=== PATIENT | male | born 1945 | race Caucasian/White ===

== ENCOUNTER 2023-07-27 10:05 | Outpatient (CLI) | payer MEDICARE, BC | END 2023-07-27 10:06 | disposition home or self-care (01) | LOC: CSHWCC 10:05 | PROVIDERS: ATTEND Nurse Practitioner Family | DX: N30.41 Irradiation cystitis with hematuria (principal) | CPT/HCPCS: 99213; G0463 ==

== ENCOUNTER 2023-08-18 08:19 | Outpatient (CLI) | payer MEDICARE, BC | END 2023-08-18 08:20 | disposition home or self-care (01) | LOC: CSHWCC 08:19 | PROVIDERS: ATTEND Preventive Medicine Undersea and Hyperbaric Medicine | DX: N30.41 Irradiation cystitis with hematuria (principal) | CPT/HCPCS: G0277 ==

== ENCOUNTER 2023-08-19 08:57 | Outpatient (CLI) | payer MEDICARE, BC | END 2023-08-19 08:58 | disposition home or self-care (01) | LOC: CSHWCC 08:57 | PROVIDERS: ATTEND Nurse Practitioner Family | DX: N30.41 Irradiation cystitis with hematuria (principal) | CPT/HCPCS: G0277 ==

== ENCOUNTER 2023-08-20 08:24 | Outpatient (CLI) | payer MEDICARE, BC | END 2023-08-20 08:25 | disposition home or self-care (01) | LOC: CSHWCC 08:24 | PROVIDERS: ATTEND Nurse Practitioner Family | DX: N30.41 Irradiation cystitis with hematuria (principal) | CPT/HCPCS: G0277 ==

== ENCOUNTER 2023-08-21 14:26 | Outpatient (CLI) | payer MEDICARE, BC | END 2023-08-21 14:27 | disposition home or self-care (01) | LOC: CSHWCC 14:26 | PROVIDERS: ATTEND Nurse Practitioner Family | DX: N30.41 Irradiation cystitis with hematuria (principal) | CPT/HCPCS: G0277 ==

== ENCOUNTER 2023-08-24 10:11 | Outpatient (CLI) | payer MEDICARE, BC | END 2023-08-24 10:12 | disposition home or self-care (01) | LOC: CSHWCC 10:11 | PROVIDERS: ATTEND Nurse Practitioner Family | DX: N30.41 Irradiation cystitis with hematuria (principal) ==

== ENCOUNTER 2023-08-25 08:36 | Outpatient (CLI) | payer MEDICARE, BC | END 2023-08-25 08:37 | disposition home or self-care (01) | LOC: CSHWCC 08:36 | PROVIDERS: ATTEND Nurse Practitioner Family | DX: N30.41 Irradiation cystitis with hematuria (principal) | CPT/HCPCS: G0277 ==

== ENCOUNTER 2023-08-26 08:10 | Outpatient (CLI) | payer MEDICARE, BC | END 2023-08-26 08:11 | disposition home or self-care (01) | LOC: CSHWCC 08:10 | PROVIDERS: ATTEND Nurse Practitioner Family | DX: N30.41 Irradiation cystitis with hematuria (principal) | CPT/HCPCS: G0277 ==

== ENCOUNTER 2023-08-27 08:56 | Outpatient (CLI) | payer MEDICARE, BC | END 2023-08-27 08:57 | disposition home or self-care (01) | LOC: CSHWCC 08:56 | PROVIDERS: ATTEND Nurse Practitioner Family | DX: N30.41 Irradiation cystitis with hematuria (principal) | CPT/HCPCS: G0277 ==

== ENCOUNTER 2023-08-28 08:31 | Outpatient (CLI) | payer MEDICARE, BC | END 2023-08-28 08:32 | disposition home or self-care (01) | LOC: CSHWCC 08:31 | PROVIDERS: ATTEND Nurse Practitioner Family | DX: N30.41 Irradiation cystitis with hematuria (principal) | CPT/HCPCS: G0277 ==

== ENCOUNTER 2023-08-31 09:50 | Outpatient (CLI) | payer MEDICARE, BC | END 2023-08-31 09:51 | disposition home or self-care (01) | LOC: CSHWCC 09:50 | PROVIDERS: ATTEND Nurse Practitioner Family | DX: N30.41 Irradiation cystitis with hematuria (principal) | CPT/HCPCS: 82962; G0277; 36416 ==

== ENCOUNTER 2023-09-01 08:49 | Outpatient (CLI) | payer MEDICARE, BC | END 2023-09-01 08:50 | disposition home or self-care (01) | LOC: CSHWCC 08:49 | PROVIDERS: ATTEND Nurse Practitioner Family | DX: N30.41 Irradiation cystitis with hematuria (principal) | CPT/HCPCS: G0277 ==

== ENCOUNTER 2023-09-02 08:26 | Outpatient (CLI) | payer MEDICARE, BC | END 2023-09-02 08:27 | disposition home or self-care (01) | LOC: CSHWCC 08:26 | PROVIDERS: ATTEND Nurse Practitioner Family | DX: N30.41 Irradiation cystitis with hematuria (principal) | CPT/HCPCS: G0277 ==

== ENCOUNTER 2023-09-03 08:59 | Outpatient (CLI) | payer MEDICARE, BC | END 2023-09-03 09:00 | disposition home or self-care (01) | LOC: CSHWCC 08:59 | PROVIDERS: ATTEND Preventive Medicine Undersea and Hyperbaric Medicine | DX: N30.41 Irradiation cystitis with hematuria (principal) | CPT/HCPCS: G0277 ==

== ENCOUNTER 2023-09-04 08:50 | Outpatient (CLI) | payer MEDICARE, BC | END 2023-09-04 08:51 | disposition home or self-care (01) | LOC: CSHWCC 08:50 | PROVIDERS: ATTEND Preventive Medicine Undersea and Hyperbaric Medicine | DX: N30.41 Irradiation cystitis with hematuria (principal) | CPT/HCPCS: G0277 ==

== ENCOUNTER 2023-09-07 12:12 | Outpatient (CLI) | payer MEDICARE, BC | END 2023-09-07 12:13 | disposition home or self-care (01) | LOC: CSHWCC 12:12 | PROVIDERS: ATTEND Preventive Medicine Undersea and Hyperbaric Medicine | DX: N30.41 Irradiation cystitis with hematuria (principal) | CPT/HCPCS: G0277 ==

== ENCOUNTER 2023-09-08 09:23 | Outpatient (CLI) | payer MEDICARE, BC | END 2023-09-08 09:24 | disposition home or self-care (01) | LOC: CSHWCC 09:23 | PROVIDERS: ATTEND Preventive Medicine Undersea and Hyperbaric Medicine | DX: N30.41 Irradiation cystitis with hematuria (principal) | CPT/HCPCS: G0277 ==

== ENCOUNTER 2023-09-14 10:29 | Outpatient (CLI) | payer MEDICARE, BC | END 2023-09-14 10:30 | disposition home or self-care (01) | LOC: CSHWCC 10:29 | PROVIDERS: ATTEND Nurse Practitioner Family | DX: N30.41 Irradiation cystitis with hematuria (principal) ==

== ENCOUNTER 2023-09-15 12:03 | Outpatient (CLI) | payer MEDICARE, BC | END 2023-09-15 12:04 | disposition home or self-care (01) | LOC: CSHWCC 12:03 | PROVIDERS: ATTEND Nurse Practitioner Family | DX: N30.41 Irradiation cystitis with hematuria (principal) ==

== ENCOUNTER 2023-09-16 12:22 | Outpatient (CLI) | payer MEDICARE, BC | END 2023-09-16 12:23 | disposition home or self-care (01) | LOC: CSHWCC 12:22 | PROVIDERS: ATTEND Nurse Practitioner Family | DX: N30.41 Irradiation cystitis with hematuria (principal) | CPT/HCPCS: G0277 ==

== ENCOUNTER 2023-09-18 09:18 | Outpatient (CLI) | payer MEDICARE, BC | END 2023-09-18 09:19 | disposition home or self-care (01) | LOC: CSHWCC 09:18 | PROVIDERS: ATTEND Nurse Practitioner Family | DX: N30.41 Irradiation cystitis with hematuria (principal) | CPT/HCPCS: G0277 ==

== ENCOUNTER 2023-09-21 09:39 | Outpatient (CLI) | payer MEDICARE, BC | END 2023-09-21 09:40 | disposition home or self-care (01) | LOC: CSHWCC 09:39 | PROVIDERS: ATTEND Nurse Practitioner Family | DX: N30.41 Irradiation cystitis with hematuria (principal) ==

== ENCOUNTER 2023-09-23 14:10 | Outpatient (CLI) | payer MEDICARE, BC | END 2023-09-23 14:11 | disposition home or self-care (01) | LOC: CSHWCC 14:10 | PROVIDERS: ATTEND Nurse Practitioner Family | DX: N30.41 Irradiation cystitis with hematuria (principal) | CPT/HCPCS: G0277 ==

== ENCOUNTER 2023-09-24 08:18 | Outpatient (CLI) | payer MEDICARE, BC | END 2023-09-24 08:19 | disposition home or self-care (01) | LOC: CSHWCC 08:18 | PROVIDERS: ATTEND Nurse Practitioner Family | DX: N30.41 Irradiation cystitis with hematuria (principal) | CPT/HCPCS: G0277 ==

== ENCOUNTER 2023-09-29 12:59 | Outpatient (CLI) | payer MEDICARE, BC | END 2023-09-29 13:00 | disposition home or self-care (01) | LOC: CSHWCC 12:59 | PROVIDERS: ATTEND Nurse Practitioner Family | DX: N30.41 Irradiation cystitis with hematuria (principal) | CPT/HCPCS: G0277 ==

== ENCOUNTER 2023-09-30 13:17 | Outpatient (CLI) | payer MEDICARE, BC | END 2023-09-30 13:18 | disposition home or self-care (01) | LOC: CSHWCC 13:17 | PROVIDERS: ATTEND Nurse Practitioner Family | DX: N30.41 Irradiation cystitis with hematuria (principal) | CPT/HCPCS: G0277 ==

== ENCOUNTER 2023-10-01 08:49 | Outpatient (CLI) | payer MEDICARE, BC | END 2023-10-01 08:50 | disposition home or self-care (01) | LOC: CSHWCC 08:49 | PROVIDERS: ATTEND Nurse Practitioner Family | DX: N30.41 Irradiation cystitis with hematuria (principal) | CPT/HCPCS: G0277 ==

== ENCOUNTER 2023-10-02 08:38 | Outpatient (CLI) | payer MEDICARE, BC | END 2023-10-02 08:39 | disposition home or self-care (01) | LOC: CSHWCC 08:38 | PROVIDERS: ATTEND Nurse Practitioner Family | DX: N30.41 Irradiation cystitis with hematuria (principal) | CPT/HCPCS: G0277 ==

== ENCOUNTER 2024-11-18 08:03 | Outpatient (CLI) | payer MEDICARE, BC | END 2024-11-18 08:04 | disposition home or self-care (01) | LOC: CSHWCC 08:03 | PROVIDERS: ATTEND Nurse Practitioner Family | DX: N30.41 Irradiation cystitis with hematuria (principal); L59.8 Other specified disorders of the skin and subcutaneous tissue related to radiation | CPT/HCPCS: 99212; G0463 ==

== ENCOUNTER 2024-11-18 08:52 | Outpatient (CLI) | payer MEDICARE, BC | END 2024-11-18 08:53 | disposition home or self-care (01) | LOC: CSHRAD 08:52 | PROVIDERS: ATTEND Nurse Practitioner Family | DX: N30.41 Irradiation cystitis with hematuria (principal); L59.8 Other specified disorders of the skin and subcutaneous tissue related to radiation | CPT/HCPCS: 71046; 99212; G0463 ==

== ENCOUNTER 2024-11-22 08:40 | Outpatient (CLI) | payer MEDICARE, BC | END 2024-11-22 08:41 | disposition home or self-care (01) | LOC: CSHWCC 08:40 | PROVIDERS: ATTEND Nurse Practitioner Family | DX: N30.41 Irradiation cystitis with hematuria (principal); L59.8 Other specified disorders of the skin and subcutaneous tissue related to radiation | CPT/HCPCS: G0277 ==

== ENCOUNTER 2024-11-23 08:22 | Outpatient (CLI) | payer MEDICARE, BC | END 2024-11-23 08:23 | disposition home or self-care (01) | LOC: CSHWCC 08:22 | PROVIDERS: ATTEND Nurse Practitioner Family | DX: N30.41 Irradiation cystitis with hematuria (principal); L59.8 Other specified disorders of the skin and subcutaneous tissue related to radiation | CPT/HCPCS: G0277 ==

== ENCOUNTER 2024-11-24 08:32 | Outpatient (CLI) | payer MEDICARE, BC | END 2024-11-24 08:33 | disposition home or self-care (01) | LOC: CSHWCC 08:32 | PROVIDERS: ATTEND Nurse Practitioner Family | DX: N30.41 Irradiation cystitis with hematuria (principal); L59.8 Other specified disorders of the skin and subcutaneous tissue related to radiation | CPT/HCPCS: G0277 ==

== ENCOUNTER 2024-11-25 08:11 | Outpatient (CLI) | payer MEDICARE, BC | END 2024-11-25 08:12 | disposition home or self-care (01) | LOC: CSHWCC 08:11 | PROVIDERS: ATTEND Nurse Practitioner Family | DX: N30.41 Irradiation cystitis with hematuria (principal); L59.8 Other specified disorders of the skin and subcutaneous tissue related to radiation | CPT/HCPCS: G0277 ==

== ENCOUNTER 2024-11-28 08:10 | Outpatient (CLI) | payer MEDICARE, BC | END 2024-11-28 08:11 | disposition home or self-care (01) | LOC: CSHWCC 08:10 | PROVIDERS: ATTEND Nurse Practitioner Family | DX: N30.41 Irradiation cystitis with hematuria (principal); L59.8 Other specified disorders of the skin and subcutaneous tissue related to radiation | CPT/HCPCS: G0277 ==

== ENCOUNTER 2024-11-29 08:24 | Outpatient (CLI) | payer MEDICARE, BC | END 2024-11-29 08:25 | disposition home or self-care (01) | LOC: CSHWCC 08:24 | PROVIDERS: ATTEND Nurse Practitioner Family | DX: N30.41 Irradiation cystitis with hematuria (principal); L59.8 Other specified disorders of the skin and subcutaneous tissue related to radiation | CPT/HCPCS: G0277 ==

== ENCOUNTER 2024-11-30 08:32 | Outpatient (CLI) | payer MEDICARE, BC | END 2024-11-30 08:33 | disposition home or self-care (01) | LOC: CSHWCC 08:32 | PROVIDERS: ATTEND Nurse Practitioner Family | DX: N30.41 Irradiation cystitis with hematuria (principal); L59.8 Other specified disorders of the skin and subcutaneous tissue related to radiation | CPT/HCPCS: G0277 ==

== ENCOUNTER 2024-12-02 08:13 | Outpatient (CLI) | payer MEDICARE, BC | END 2024-12-02 08:14 | disposition home or self-care (01) | LOC: CSHWCC 08:13 | PROVIDERS: ATTEND Nurse Practitioner Family | DX: N30.41 Irradiation cystitis with hematuria (principal); L59.8 Other specified disorders of the skin and subcutaneous tissue related to radiation | CPT/HCPCS: G0277 ==

== ENCOUNTER 2024-12-05 08:24 | Outpatient (CLI) | payer MEDICARE, BC | END 2024-12-05 08:25 | disposition home or self-care (01) | LOC: CSHWCC 08:24 | PROVIDERS: ATTEND Nurse Practitioner Family | DX: N30.41 Irradiation cystitis with hematuria (principal); L59.8 Other specified disorders of the skin and subcutaneous tissue related to radiation | CPT/HCPCS: G0277 ==

== ENCOUNTER 2024-12-06 08:26 | Outpatient (CLI) | payer MEDICARE, BC | END 2024-12-06 08:27 | disposition home or self-care (01) | LOC: CSHWCC 08:26 | PROVIDERS: ATTEND Nurse Practitioner Family | DX: N30.41 Irradiation cystitis with hematuria (principal); L59.8 Other specified disorders of the skin and subcutaneous tissue related to radiation | CPT/HCPCS: G0277 ==

== ENCOUNTER 2024-12-07 08:12 | Outpatient (CLI) | payer MEDICARE, BC | END 2024-12-07 08:13 | disposition home or self-care (01) | LOC: CSHWCC 08:12 | PROVIDERS: ATTEND Nurse Practitioner Family | DX: N30.41 Irradiation cystitis with hematuria (principal); L59.8 Other specified disorders of the skin and subcutaneous tissue related to radiation | CPT/HCPCS: G0277 ==

== ENCOUNTER 2024-12-08 08:27 | Outpatient (CLI) | payer MEDICARE, BC | END 2024-12-08 08:28 | disposition home or self-care (01) | LOC: CSHWCC 08:27 | PROVIDERS: ATTEND Nurse Practitioner Family | DX: N30.41 Irradiation cystitis with hematuria (principal); L59.8 Other specified disorders of the skin and subcutaneous tissue related to radiation | CPT/HCPCS: G0277 ==

== ENCOUNTER 2024-12-09 08:30 | Outpatient (CLI) | payer MEDICARE, BC | END 2024-12-09 08:31 | disposition home or self-care (01) | LOC: CSHWCC 08:30 | PROVIDERS: ATTEND Nurse Practitioner Family | DX: N30.41 Irradiation cystitis with hematuria (principal); L59.8 Other specified disorders of the skin and subcutaneous tissue related to radiation | CPT/HCPCS: G0277 ==

== ENCOUNTER 2024-12-13 08:24 | Outpatient (CLI) | payer MEDICARE, BC | END 2024-12-13 08:25 | disposition home or self-care (01) | LOC: CSHWCC 08:24 | PROVIDERS: ATTEND Nurse Practitioner Family | DX: N30.41 Irradiation cystitis with hematuria (principal); L59.8 Other specified disorders of the skin and subcutaneous tissue related to radiation | CPT/HCPCS: G0277 ==

== ENCOUNTER 2024-12-14 08:05 | Outpatient (CLI) | payer MEDICARE, BC | END 2024-12-14 08:06 | disposition home or self-care (01) | LOC: CSHWCC 08:05 | PROVIDERS: ATTEND Nurse Practitioner Family | DX: N30.41 Irradiation cystitis with hematuria (principal); L59.8 Other specified disorders of the skin and subcutaneous tissue related to radiation | CPT/HCPCS: G0277 ==

== ENCOUNTER 2024-12-15 08:12 | Outpatient (CLI) | payer MEDICARE, BC | END 2024-12-15 08:13 | disposition home or self-care (01) | LOC: CSHWCC 08:12 | PROVIDERS: ATTEND Nurse Practitioner Family | DX: N30.41 Irradiation cystitis with hematuria (principal); L59.8 Other specified disorders of the skin and subcutaneous tissue related to radiation | CPT/HCPCS: G0277 ==

== ENCOUNTER 2024-12-16 08:00 | Outpatient (CLI) | payer MEDICARE, BC | END 2024-12-16 08:01 | disposition home or self-care (01) | LOC: CSHWCC 08:00 | PROVIDERS: ATTEND Nurse Practitioner Family | DX: N30.41 Irradiation cystitis with hematuria (principal); L59.8 Other specified disorders of the skin and subcutaneous tissue related to radiation | CPT/HCPCS: G0277 ==

== ENCOUNTER 2024-12-30 08:17 | Outpatient (CLI) | payer MEDICARE, BC | END 2024-12-30 08:18 | disposition home or self-care (01) | LOC: CSHWCC 08:17 | PROVIDERS: ATTEND Nurse Practitioner Family | DX: N30.41 Irradiation cystitis with hematuria (principal); L59.8 Other specified disorders of the skin and subcutaneous tissue related to radiation | CPT/HCPCS: G0277 ==

== ENCOUNTER 2025-01-02 09:03 | Outpatient (CLI) | payer MEDICARE, BC | END 2025-01-02 09:04 | disposition home or self-care (01) | LOC: CSHWCC 09:03 | PROVIDERS: ATTEND Nurse Practitioner Family | DX: N30.41 Irradiation cystitis with hematuria (principal); L59.8 Other specified disorders of the skin and subcutaneous tissue related to radiation | CPT/HCPCS: G0277 ==

== ENCOUNTER 2025-01-17 08:02 | Outpatient (CLI) | payer MEDICARE, BC | END 2025-01-17 08:03 | disposition home or self-care (01) | LOC: CSHWCC 08:02 | PROVIDERS: ATTEND Nurse Practitioner Family | DX: N30.41 Irradiation cystitis with hematuria (principal); L59.8 Other specified disorders of the skin and subcutaneous tissue related to radiation | CPT/HCPCS: G0277 ==

== ENCOUNTER 2025-01-24 08:09 | Outpatient (CLI) | payer MEDICARE, BC | END 2025-01-24 08:10 | disposition home or self-care (01) | LOC: CSHWCC 08:09 | PROVIDERS: ATTEND Nurse Practitioner Family | DX: N30.41 Irradiation cystitis with hematuria (principal); L59.8 Other specified disorders of the skin and subcutaneous tissue related to radiation | CPT/HCPCS: G0277 ==

== ENCOUNTER 2025-01-26 08:04 | Outpatient (CLI) | payer MEDICARE, BC | END 2025-01-26 08:05 | disposition home or self-care (01) | LOC: CSHWCC 08:04 | PROVIDERS: ATTEND Nurse Practitioner Family | DX: N30.41 Irradiation cystitis with hematuria (principal); L59.8 Other specified disorders of the skin and subcutaneous tissue related to radiation | CPT/HCPCS: G0277 ==

== ENCOUNTER 2025-01-27 08:07 | Outpatient (CLI) | payer MEDICARE, BC | END 2025-01-27 08:08 | disposition home or self-care (01) | LOC: CSHWCC 08:07 | PROVIDERS: ATTEND Nurse Practitioner Family | DX: N30.41 Irradiation cystitis with hematuria (principal); L59.8 Other specified disorders of the skin and subcutaneous tissue related to radiation | CPT/HCPCS: G0277 ==

== ENCOUNTER 2025-01-30 08:04 | Outpatient (CLI) | payer MEDICARE, BC | END 2025-01-30 08:05 | disposition home or self-care (01) | LOC: CSHWCC 08:04 | PROVIDERS: ATTEND Nurse Practitioner Family | DX: N30.41 Irradiation cystitis with hematuria (principal); L59.8 Other specified disorders of the skin and subcutaneous tissue related to radiation | CPT/HCPCS: G0277 ==

== ENCOUNTER 2025-01-31 08:30 | Outpatient (CLI) | payer MEDICARE, BC | END 2025-01-31 08:31 | disposition home or self-care (01) | LOC: CSHWCC 08:30 | PROVIDERS: ATTEND Nurse Practitioner Family | DX: N30.41 Irradiation cystitis with hematuria (principal); L59.8 Other specified disorders of the skin and subcutaneous tissue related to radiation | CPT/HCPCS: G0277 ==

== ENCOUNTER 2025-02-01 08:10 | Outpatient (CLI) | payer MEDICARE, BC | END 2025-02-01 08:11 | disposition home or self-care (01) | LOC: CSHWCC 08:10 | PROVIDERS: ATTEND Nurse Practitioner Family | DX: N30.41 Irradiation cystitis with hematuria (principal); L59.8 Other specified disorders of the skin and subcutaneous tissue related to radiation | CPT/HCPCS: G0277 ==